=== PATIENT | female | born 1965 | race Caucasian/White ===

== ENCOUNTER 2018-02-04 18:28 | Emergency (ER) | payer OTHER ==
[2018-02-04 18:41] VITALS: BP 138/86
[2018-02-04] MEDS ORDERED: Lidocaine 1%* 5 ML VIAL INJ ONE (18:48)
[2018-02-04] MEDS ORDERED: Tetan/Diph/Pertus SYR(Tdap)* 0.5 ML SYR(BOOSTRIX) use SYR IM ONE (18:52)
--- NOTE | 2018-02-04 20:06 | UC ---
Shreya Goins Emily, scribed for Clifton Garcia MD on 02/04/18 at 1851 . Bite Injury/Animal HPI - HPI Summary HPI Summary: This patient is a 52 year old F presenting to [facility] care accompanied by with a chief complaint of dog bite to R hand that occurred at 1715. She reports that her dog was sleeping; she startled it awake and was bitten. The patient rates the pain 1/10 in severity. Symptoms aggravated by nothing. Symptoms alleviated by nothing. Allergies reviewed. Medications reviewed. 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 Severity Currently: Mild Severity Initially: Mild Pain Intensity: 1 Pain Scale Used: 0-10 Numeric Onset/Duration: Sudden Onset, Lasting Hours, Still Present Type of Bite: Animal Has Animal Been Immunized?: Yes Character: Puncture Aggravating Factor(s): Nothing Alleviating Factor(s): Nothing Animal Available for Observation: Yes - Allergies/Home Medications Allergies/Adverse Reactions: Allergies Allergy/AdvReac Type Severity Reaction Status Date / Time vancomycin Allergy See Comment Verified 02/04/18 18:44 Home Medications: Home Medications Atorvastatin* [Lipitor*] 10 mg PO BEDTIME 02/04/18 [History Confirmed 02/04/18] Cholecalciferol (Vitamin D3) [ Vitamin D3] 2,000 unit PO DAILY 02/04/18 [ History Confirmed 02/04/18] PMH/Surg Hx/FS Hx/Imm Hx Previously Healthy: Yes Endocrine History: Other Other Endocrine History: Negative diabetes Cardiovascular History: Other Other Cardiovascular History: Negative HTN - Surgical History Surgical History: None Surgery Procedure, Year, and Place: ORIF ankle 2007 - Social History Occupation: Employed Full-time Lives: With Family Alcohol Use: Weekly Substance Use Type: None Smoking Status (MU): Never Smoked Tobacco Review of Systems Constitutional: Other - Negative fever Skin: Other - Positive dog bite All Other Systems Reviewed And Are Negative: Yes Physical Exam - Summary Physical Exam Summary: General: well-appearing, no pain distress Skin: warm, color reflects adequate perfusion, dry. 2 cm subcutaneous laceration on the webbing between the thumb and the first finger on the dorsal aspect. Puncture wound on the dorsum. Full ROM. Good capillary refill. Good sensation. Head: normal Eyes: EOMI, KURTIS ENT: normal Neck: supple, nontender Respiratory: CTA, breath sounds present Cardiovascular: RRR Abdomen: soft, nontender Bowel: present Musculoskeletal: normal, strength/ROM intact Neurological: sensory/motor intact, A&O x3 Psychological: affect/mood appropriate Triage Information Reviewed: Yes Vital Signs: Initial Vital Signs Temp 98.2 F 02/04/18 18:36 Pulse 81 02/04/18 18:36 Resp 16 02/04/18 18:36 BP 138/86 02/04/18 18:36 Pulse Ox 98 02/04/18 18:36 Vital Signs Reviewed: Yes Procedures - Laceration/Wound Repair 1 Location: Other - R hand Description: Irregular Anesthesia: 1.0%, Lido Length, Depth and Shape: 2 cm with irregular edges Irrigated w/ Saline (ccs): 10 - Shur-clens also used Laceration/Wound Explored: clean Closure: Single Layer Suture Type: Prolene - 5.0 Number of Sutures: 3 - Closed loosely Bite Injury Course/Dx - Course Course Of Treatment: LACERATION CLOSED LOOSELY. RX AUGMENTIN. TDAP GIVE. THE DOG IS THEIR DOG AND UP TO DATE ON VACCINATIONS. F/U PMD; RECHECK SOONER IF WORSE. - Differential Dx/Diagnosis Provider Diagnoses: RIGHT HAND DOG BITE Discharge - Sign-Out/Discharge Documenting (check all that apply): Discharge/Admit/Transfer - Discharge Plan Condition: Stable Disposition: HOME Prescriptions: Amoxicillin/Clavulanate TAB* [Augmentin TAB 875*] 875 mg PO BID #20 tab Patient Education Materials: Animal Bite (ED), Laceration (ED) Referrals: [facility] [Outside] Additional Instructions: FOLLOW UP WITH YOUR DOCTOR. SUTURES OUT IN 8-10 DAYS. GET RECHECKED FOR ANY WORSENING OF YOUR CONDITION; SIGNS OF INFECTION OR QUESTIONS OR CONCERNS. - Billing Disposition and Condition Condition: STABLE Disposition: Home The documentation as recorded by the Shreya fontaine Emily accurately reflects the service I personally performed and the decisions made by me, Clifton Garcia MD.
== END 2018-02-04 20:12 | disposition home or self-care (01) ==
LOC: UCEAST 18:28
DX: S61.451A Open bite of right hand, initial encounter (principal); S61.411A Laceration without foreign body of right hand, initial encounter; W54.0XXA Bitten by dog, initial encounter; Y92.9 Unspecified place or not applicable; Z88.1 Allergy status to other antibiotic agents
CPT/HCPCS: 12001; 90715; 99202; G0463